=== PATIENT | female | born 1955 | race Caucasian/White ===

== ENCOUNTER 2022-12-13 11:16 | Outpatient (CLI) | payer MEDICARE, BC, SELFPAY ==
[2022-12-13 11:43] LABS: Hematocrit 38.6 % (37.0-47.0); Hemoglobin 12.1 g/dL (12.0-15.0); Mean Corpuscular HGB Conc 31.3 g/dl (32-36); Mean Corpuscular Hemoglobin 31.4 pg (26-34); Mean Corpuscular Volume 100.3 fl (80-100); Mean Platelet Volume 9.5 fl (7.4-10.4); Platelet Count Result 227 k/mm3 (150-375); Red Blood Count 3.85 M/mm3 (4.2-5.4); Red Cell Distribution Width 14.8 % (11.5-14.5); White Blood Count 6.4 K/mm3 (4.5-10.0)
[2022-12-13 11:54] LABS: Albumin Level 4.2 g/dL (3.5-5.1); Anion Gap 5 mmol/L (8-16); Blood Urea Nitrogen 23 mg/dL (7-17); Calcium 9.5 mg/dL (8.4-10.2); Carbon Dioxide 35 mmol/L (22-30); Chloride 100 mmol/L (98-107); Estimated Glomerular Filt Rate > 60; Glucose 116 mg/dL (65-110); Potassium 4.7 mmol/L (3.4-5.0); Sodium 140 mmol/L (137-145)
[2022-12-13 11:57] LABS: Iron 79 ug/dL (37-170)
[2022-12-13 12:01] LABS: Prealbumin 17.8 mg/dL (17.6-36.0)
[2022-12-18 10:14] LABS: Vitamin B1 17 nmol/L (8-30)
== END 2022-12-13 11:17 | disposition home or self-care (01) ==
LOC: ANHLAB 11:18
PROVIDERS: Visit Provider Surgery Plastic and Reconstructive Surgery
DX: Z98.84 Bariatric surgery status (principal)
CPT/HCPCS: 36415; 80048; 82040; 83540; 84134; 84425; 85027

== ENCOUNTER 2023-01-09 00:02 | Day surgery (SDC) | payer OTHER, SELFPAY ==
--- NOTE | 2022-12-27 15:20 | PC.NURSE ---
Report to the Outpatient Waiting Room, entrance under the green pavilion located off [facility], at time __0930 on date 01/09/23 . Planned Procedure Time: _1130 . Time changes happen often and if your time is changed the preop area will call you the afternoon before. - You and your visitor will be asked to self-screen and do not enter if you have any COVID symptoms. - A mask is optional within the hospital at this time. Patients may have clear liquids (water, carbonated beverages, clear teas, apple juice) until 3 hours prior to surgery with a maximum of 20 ounces. - No food from midnight until time of surgery - Infants may have breast milk until 4 hours before surgery, infant formula 6 hours prior to surgery. - Children will be allowed to drink immediately following surgery. If applicable, please bring a bottle or sippy cup to assist with drinking. Juice, water, soda, and popsicles are readily available. For infants on formula, please bring formula the day of surgery. Pacifiers are allowed. Take the following medications with a SIP of water the morning of surgery: ___BUPROPION,DULOXETINE,GABAPENTIN,LORAZEPAM DO NOT STOP ANY OF YOUR OTHER PRESCRIPTION MEDICATIONS PRIOR TO SURGERY ?EXCEPT THE FOLLOWING Medications to discontinue per physician ALL VITAMINS AND SUPPLEMENTS 3 DAYS PRE OP .LAST DOSE 01/06/23___ Please no make-up, nail yi, hairspray, perfume, deodorant, or body powder the day of surgery. No jewelry (including any body piercings) or valuables the day of surgery, leave them at home. Please take a shower or bath the night before, or the morning of, surgery with an antibacterial soap. Wear comfortable, loose fitting clothing. Children are encouraged to wear pajamas. - Jewelry must be removed prior to entering the operating room. Rings and piercings that are not removed may be cut off. - The hospital will not accept responsibility for valuables. - Please leave all valuables, including medications, at home the day of surgery. If you are going home after surgery, a licensed power screwdriver operator must drive you home. - NO public transportation without another adult if you receive anesthesia. - We recommend that an adult stay with you for 24 hours following discharge. - We also recommend that you do not drive, make important decision, drink alcoholic beverages, or take any drugs that were not prescribed by your health care provider for at least 24 hours after your discharge time. For Pediatric surgeries, we recommend two adults accompany the child home. Follow any additional instructions given to you from your surgeon. If you or anyone in your household have experienced Covid symptoms in the past week, please notify your surgeon or the nurse liaison at the phone number below for possible testing. Telephone instructions given to ___PATIENT and asked if any additional questions and then verbalized understanding. Patient advised to call surgeon office or pre surgery nurse liaison [phone] if any additional questions.
[2022-12-27 15:42] VITALS: BMI 31.6
[2023-01-09] VITALS (8 sets, daily range): BP systolic 113–148; BP diastolic 70–87; PULSE 80–95; RESP 12–16; TEMP 36.7–37.6; O2SAT 93–100
--- NOTE | 2023-01-09 07:48 | ECG_ITS ---
Measurements Intervals [place] Rate: 74 P: 47 ME: 155 QRS: 7 QRSD: 94 T: 24 QT: 377 QTc: 420 Interpretive Statements SINUS RHYTHM NO PREVIOUS ECG AVAILABLE FOR COMPARISON Electronically Signed On 01-09-2023 11:02:19 CDT by Twin Carlos M.D.
[2023-01-09] MEDS: LACTATED RINGERS 1,000 ML 30 ML IV CONT ×2 (10:15→14:45)
--- NOTE | 2023-01-09 10:56 | WPDANESEPPF ---
Anes - Initial Pre Proc Eval Procedure: Operation Date: 01/09/23 11:30 Proposed Procedures p Bilateral Medial Thigh Lift - Denis Anderson MD Date/Time: 01/09/23 10:56 Surgeon: Denis Anderson MD Pre Op Diagnosis: skin laxity Patient Data Age: 68 Gender: F Height: 1.78 m Weight: 100.2 kg Last Vital Signs Temp 36.7 C 01/09/23 10:00 Pulse 80 01/09/23 10:00 Resp 16 01/09/23 10:00 BP 113/70 01/09/23 10:00 Pulse Ox 98 01/09/23 10:00 O2 Del Method Room Air 01/09/23 10:00 Allergies Allergy/AdvReac Type Severity Reaction Status Date / Time cephalexin Allergy Intermediate Itching Verified 12/27/22 14:48 cyclobenzaprine Allergy Intermediate Itching Verified 12/27/22 14:48 ketoconazole Allergy Intermediate Rash Verified 12/27/22 14:48 ropinirole Allergy Intermediate Itching Verified 12/27/22 14:48 carbamazepine AdvReac Other Verified 12/27/22 14:48 carvedilol AdvReac Other Verified 12/27/22 14:48 pramipexole AdvReac Other Verified 12/27/22 14:48 Home Medications Medication Instructions Recorded Confirmed Type acetaminophen 325 mg tablet (Mapap 650 mg PO ACHS #1 tablet 02/02/21 12/27/22 Rx (acetaminophen)) ascorbic acid (vitamin C) 500 mg 1,000 mg PO BIDWM #1 tablet 02/02/21 12/27/22 Rx tablet (Vitamin C) bupropion HCl 300 mg 24 hr tablet, 300 mg PO QAM #1 tablet 02/02/21 12/27/22 Rx extended release cholecalciferol (vitamin D3) 125 5,000 unit PO DAILY #1 tablet 02/02/21 12/27/22 Rx mcg (5,000 unit) tablet duloxetine 60 mg capsule,delayed 120 mg PO QAM #1 cap 02/02/21 12/27/22 Rx release oxycodone 5 mg tablet 5 mg PO Q4H PRN Pain Rated 7-10 #0 02/02/21 12/27/22 Rx tabs gabapentin 300 mg capsule 300 mg PO ACHS RLS 12/27/22 12/27/22 History (Neurontin) lorazepam 1 mg tablet 0.5 mg PO TID@0800,1600,2100 12/27/22 12/27/22 History melatonin 3 mg tablet 10 mg PO HS 12/27/22 12/27/22 History midodrine 5 mg tablet 5 mg PO TID 12/27/22 12/27/22 History omeprazole 40 mg capsule,delayed 40 mg PO TID 12/27/22 12/27/22 History release Patient hx anesthesia problems: none Family hx anesthesia problems: none Results Review: All pre-operative results and documents have been reviewed as part of the pre-operative evaluation. PMF Past Medical History Medical History Anxiety Blood loss anemia Degenerative disc disease Depression GERD (gastroesophageal reflux disease) Hypocalcemia Insomnia Multiple sclerosis Obesity Osteoarthritis Postoperative pain Rheumatoid arthritis Scoliosis deformity of spine Vaginal yeast infection Vitamin B12 deficiency Surgical History Surgical History History of back surgery History of total abdominal hysterectomy and bilateral salpingo-oophorectomy Hx of cholecystectomy Status post laminectomy with spinal fusion Social History Social History Social History: patient lives alone in a single-story home with 2 steps to enter. Patient uses a straight cane and was independent prior to surgery Smoking packs per day: 2 Smoking cigarettes per day: 40.0 Years smoked: 20 Smoking pack-years: 40.00 Smoking status: Former smoker Tobacco type: cigarettes Smoking end date: 12/17/21 Substance use: current Last use: 12/21/22 Living arrangements: alone Spiritual care concerns: No Anes - Eval Final PreProcedure Day of Procedure 01/09/23 10:56 Patient weight: obese Heart: regular rate and rhythm Lungs: clear to auscultation Airway: Mallampati scale class 1 Neurological: alert and oriented Last oral intake: >/= 8 hours ASA classification: III Emergent: no Anesthetic plan: proceed Anesthesia type and monitoring: general LMA and standard monitoring Results Review: All pre-operative results and documents have been reviewed as part of the
--- NOTE | 2023-01-09 11:13 | P.OP_ITS ---
Procedure Note - Detailed Date of Procedure 01/09/23 Pre-op Diagnosis skin laxity Post-op Diagnosis Same Procedure Performed Bilateral medial thigh lift Surgeon Denis Anderson MD Anesthesia General Findings Lipoaspirate: 1,500 cc per thigh (3,000 cc total volume) Description of Procedure Here for the above procedures. Preoperatively risks, benefits, alternatives were discussed again today in extensive detail. I want to be very realistic about the risks involved as well as expectations. Made sure answered all of their questions to satisfaction. They voiced a clear understanding. Consent obtained. Patient was marked in the preoperative holding area with their verification. Taken to the operating placed supine on the operating table. Anesthesia was provided by anesthesiology. Prepped and draped in a standard sterile fashion. Surgical time-out was taken. Stab incisions were made and I tumesced with a tumescent solution. Once adequate time for hemostasis suction lipectomy was with a 4 mm basket cannula based on S.A.F.E. technique. This was completed based on preoperative planning, intraoperative observation, and rolling pinch test which was in full agreement. I completely de-fatted the planned resection area and a strip avuls ion technique was completed. Starting proximal to distal a 10 blade was used to excise the intervening skin and this was tacked as we proceed to ensure good closure. This was closed using a 2-0 Quill, 3-0 strata fix, running subcuticular 4-0 Monocryl, and tissue glue. Dressings were placed. Tolerated the procedure well. Taken to the PACU without difficulty. All instrument sponge counts were correct at the end of the case. Estimated Blood Loss 75 Drains No Packing No Pathology None sent Complications No immediate complications Condition Stable Disposition PACU
--- NOTE | 2023-01-09 11:13 | WPDHPUPDATE1 ---
History and Physical Update Update Date/Time: 01/09/23 11:13 History and Physical has been reviewed, including an updated exam of the patient. There are NO changes in the patient's condition. Risks, benefits, and alternatives have been discussed and questions answered. Patient agrees to proceed with procedure.
[2023-01-09 11:57] LABS: Urine Cotinine NEGATIVE
[2023-01-09] MEDS: CLINDAMYCIN 900 MG/D5W 50 ML 900 MG/50 ML PIGGYBACK 50 MG IVPB (12:00)
[2023-01-09] MEDS: fentaNYL CITRATE INJ (*CRX) 100 MCG/2 ML VIAL 25 MCG IV PUSH (15:08)
[2023-01-09] MEDS: oxyCODONE HCL (*CRX) 5 MG TAB IR PO (15:53)
== END 2023-01-09 17:00 | disposition home or self-care (01) ==
PROVIDERS: PCP Family Medicine; Visit Provider Surgery Plastic and Reconstructive Surgery
PROC: (CPT 15877; principal; 2023-01-09 11:30)
DX: Z41.1 Encounter for cosmetic surgery (principal); L57.4 Cutis laxa senilis; G35 Multiple sclerosis; M06.9 Rheumatoid arthritis, unspecified; K21.9 Gastro-esophageal reflux disease without esophagitis; F41.9 Anxiety disorder, unspecified; F32.A Depression, unspecified; E66.9 Obesity, unspecified; Z68.31 Body mass index [BMI] 31.0-31.9, adult; Z98.1 Arthrodesis status; Z87.891 Personal history of nicotine dependence
CPT/HCPCS: 15833; 15879; 80307; 93005; A9270; J0171; J1100; J1170; J2250; J2405; J2704; J3010; J7120

== ENCOUNTER 2023-01-10 12:40 | Emergency (ER) | payer MEDICARE, SELFPAY ==
[2023-01-10] VITALS (22 sets, daily range): BP systolic 78–121; BP diastolic 43–64; PULSE 72–96; RESP 12–28; TEMP 36.7; O2SAT 94–100
--- NOTE | ~2023-01-10 | CT_ITS ---
EXAMINATION: CTA chest PE protocol DATE: 01/10/2023 16:01 CDT INDICATION: Pulmonary embolism TECHNIQUE: Computed tomographic angiography (CTA) of the chest was performed with 100 mL Omnipaque-35 0 intravenous contrast. The dose-length product was 538.88 mGy-cm. Maximum intensity projection 3D-re constructions of the aorta and other arteries were constructed by the technologist on a separate work station. Automated exposure control and iterative reconstruction technique were employed. COMPARISON: None. FINDINGS: Study is technically limited due to contrast bolus timing. No large central pulmonary embol ism. Pulmonary arteries are enlarged centrally consistent with pulmonary hypertension. There is media stinal lymphadenopathy, likely reactive. No significant pleural or pericardial effusion. There is ath erosclerosis of the aorta without evidence for aneurysm. There is hiatal hernia. There are surgical c hanges of gastric bypass. There is dependent atelectasis. No endobronchial lesions. No pneumothorax. Status post cholecystectomy. There are calcified granulomas of the spleen. IMPRESSION: 1. Technically limited study. No large central pulmonary embolism. 2: Mediastinal lymphadenopathy, likely reactive. 3: Enlarged pulmonary arteries consistent with pulmonary arterial hypertension. Reviewed, dictated and finalized at location B.
--- NOTE | 2023-01-10 12:50 | ECG_ITS ---
Measurements Intervals [place] Rate: 79 P: 41 [place]: 152 QRS: 11 QRSD: 98 T: 54 QT: 380 QTc: 436 Interpretive Statements SINUS RHYTHM WITHIN NORMAL LIMITS COMPARED TO ECG 01/09/2023 10:13:56 NO SIGNIFICANT CHANGE Electronically Signed On 01-10-2023 14:51:23 CDT by Nathaniel Tineo M.D.
[2023-01-10] MEDS: SODIUM CHLORIDE 0.9% IV 1,000 ML 999 ML IV CONT ×2 (14:24→17:26)
[2023-01-10 15:05] LABS: Basophils Percent Auto 0.4 % (0.2-1.2); Eosinophils Absolute Auto 0.1 K/mm3 (0-0.3); Eosinophils Percent Auto 0.8 % (0-4.4); Hematocrit 29.4 % (37.0-47.0); Immature Granulocyte Absolute 0.02 K/mm3 (0.00-0.031); Immature Granulocyte Percent A 0.3 % (0-0.5); Lymphocytes Absolute Auto 2.07 K/mm3 (0.9-3.2); Lymphocytes Percent Auto 26.7 % (18.3-44.2); Mean Corpuscular HGB Conc 30.6 g/dl (32-36); Mean Corpuscular Hemoglobin 31.5 pg (26-34); Mean Corpuscular Volume 102.8 fl (80-100); Mean Platelet Volume 9.4 fl (7.4-10.4); Monocytes Absolute Auto 1.2 K/mm3 (0.1-0.6); Neutrophils Absolute Auto 4.4 K/mm3 (1.3-6.7); Neutrophils Percent Auto 56.8 % (45.5-73.1); Platelet Count Result 185 k/mm3 (150-375); Red Blood Count 2.86 M/mm3 (4.2-5.4); Red Cell Distribution Width 14.3 % (11.5-14.5); White Blood Count 7.8 K/mm3 (4.5-10.0)
--- NOTE | 2023-01-10 15:08 | ED.DIZZY ---
HPI - Dizziness General Chief Complaint: Dizziness Stated Complaint: syncope Time Seen by Provider: 01/10/23 14:53 History of Present Illness HPI Narrative: Patient is a 68-year-old female here on postop day 1 after plastic surgery yesterday for excess skin removal on her lower extremities. This morning she may have taken double her prescribed pain medication and afterwards was more lethargic, Anastasiya, short of breath and lightheaded with standing. She went to her follow-up with her plastic surgeon and was evaluated and noted that they were appearing well. They referred her into the emergency department for hypotension. Patient states that she feels okay at rest other than her more tired than usual but when she attempts to stand she gets quite dizzy and lightheaded. She describes it as feeling as though she may pass out. No associated chest pain or shortness of breath. No fever chills. She does note that she is on a blood thinner injection after surgery which she gave herself in the abdomen earlier today. She has had decreased PO intake throughout the day today. Of note she does have a history of chronic hypotension, is on midodrine, took it today. No prior cardiac history, no history of CHF. Related Data Home Medications Medication Instructions Recorded Confirmed gabapentin 300 mg capsule 300 mg PO ACHS RLS 12/27/22 12/27/22 (Neurontin) lorazepam 1 mg tablet 0.5 mg PO TID@0800,1600,2100 12/27/22 12/27/22 melatonin 3 mg tablet 10 mg PO HS 12/27/22 12/27/22 midodrine 5 mg tablet 5 mg PO TID 12/27/22 12/27/22 omeprazole 40 mg capsule,delayed 40 mg PO TID 12/27/22 12/27/22 release Allergies Allergy/AdvReac Type Severity Reaction Status Date / Time cephalexin Allergy Intermediate Itching Verified 01/10/23 12:49 cyclobenzaprine Allergy Intermediate Itching Verified 01/10/23 12:49 ketoconazole Allergy Intermediate Rash Verified 01/10/23 12:49 ropinirole Allergy Intermediate Itching Verified 01/10/23 12:49 carbamazepine AdvReac Other Verified 01/10/23 12:49 carvedilol AdvReac Other Verified 01/10/23 12:49 pramipexole AdvReac Other Verified 01/10/23 12:49 Review of Systems Review of Systems: CONSTITUTIONAL: Denies fever, chills, or sweats. EYES: Denies visual changes, redness, or discharge. ENT: Denies rhinorrhea, congestion, sore throat, or otalgia. CARDIOVASCULAR: Denies chest pain, palpitations, or edema. Dizziness, light headedness RESPIRATORY: Dyspnea GASTROINTESTINAL: Denies abdominal pain, nausea, vomiting, or diarrhea. GENITOURINARY: Denies dysuria or hematuria. SKIN: Denies rash or itching. MUSCULOSKELETAL: Denies back pain, joint pain. Bilateral leg pain post operatively. NEUROLOGIC: Denies headache, numbness, or weakness. PSYCHIATRIC: Denies anxiety or depression. [facility] Past Medical History Medical History Anxiety Blood loss anemia Degenerative disc disease Depression GERD (gastroesophageal reflux disease) Hypocalcemia Insomnia Multiple sclerosis Obesity Osteoarthritis Postoperative pain Rheumatoid arthritis Scoliosis deformity of spine Vaginal yeast infection Vitamin B12 deficiency Surgical History Surgical History History of back surgery History of total abdominal hysterectomy and bilateral salpingo-oophorectomy Hx of cholecystectomy Status post laminectomy with spinal fusion Social History Social History Social History: patient lives alone in a single-story home with 2 steps to enter. Patient uses a straight cane and was independent prior to surgery Smoking packs per day: 2 Smoking cigarettes per day: 40.0 Years smoked: 20 Smoking pack-years: 40.00 Smoking status: Former smoker Tobacco type: cigarettes Smoking end date: 12/17/21 Substance use: current Last use: 12/21/22 Living arrangements: alone S
[2023-01-10 15:15] LABS: Alanine Aminotransferase 18 U/L (6-35); Albumin Level 3.1 g/dL (3.5-5.1); Alkaline Phosphatase 132 U/L (38-126); Anion Gap 4 mmol/L (8-16); Aspartate Amino Transferase 26 U/L (14-36); Bilirubin,Total 0.4 mg/dL (0.2-1.3); Blood Urea Nitrogen 23 mg/dL (7-17); Carbon Dioxide 31 mmol/L (22-30); Chloride 100 mmol/L (98-107); Estimated CRCL calculation 60 ml/min; Estimated Glomerular Filt Rate 55; Glucose 99 mg/dL (65-110); Potassium 3.8 mmol/L (3.4-5.0); Sodium 135 mmol/L (137-145)
--- NOTE | 2023-01-10 15:40 | PC.NURSE ---
Patient off unit to CT.
[2023-01-10 16:14] LABS: NT Pro B Type Natriuretic Pept 438 pg/mL (19.9-100); Troponin I < 0.012 ng/mL (0.000-0.034)
[2023-01-10] MEDS: ACETAMINOPHEN 325 MG TABLET 650 MG PO (17:25)
== END 2023-01-10 19:23 | disposition home or self-care (01) ==
PROVIDERS: Emergency Medicine; Emergency Provider Student in an Organized Health Care Education/Training Program; PCP Family Medicine
DX: I95.9 Hypotension, unspecified (principal); E86.0 Dehydration; R55 Syncope and collapse; R06.02 Shortness of breath; Z87.891 Personal history of nicotine dependence
CPT/HCPCS: 36415; 71275; 80053; 83880; 84484; 85025; 93005; 96360; 96361; 99284; A9270; J7030; Q9967